=== PATIENT | male | born 1965 | race Caucasian/White ===

== ENCOUNTER → 2017-04-19 | Outpatient (CLI) | payer MEDICAID, MEDICARE ==
[~2017-04-19] MED LIST: ADENOSINE 72 MG in GIVE UN-DILUTED 0 ML IV ONE; ADENOSINE 90 MG/30 ML INJ IV ONE; ASPI-231 PO; DIG0125T PO; HYDR-2652 PO; LISI40TA PO; METO-169 PO; SIMV10TA84 PO; SPIR25TA89 PO; TRAM-297 PO; TRIA50TA2 PO
== END | disposition home or self-care (01) ==
LOC: Rad HDHVI 09:17
PROVIDERS: ATTEND Internal Medicine Cardiovascular Disease
DX: I12.9 Hypertensive chronic kidney disease with stage 1 through stage 4 chronic kidney disease, or unspecified chronic kidney disease (principal); N18.4 Chronic kidney disease, stage 4 (severe); Z95.0 Presence of cardiac pacemaker
CPT/HCPCS: 78452; 93005; 93306; 96374; 96375; A9500; J0153